=== PATIENT | female | born 1935 | race Caucasian/White ===

== ENCOUNTER → 2016-10-20 | Outpatient (CLI) | payer MEDICARE ==
[~2016-10-20] MED LIST: ASPI-482 PO; CYCL10TA2 PO; DOCU100T11 PO; HYDR-2758 PO; HYDR12.58 PO; LEVO175T5 PO; MULT-208 PO; PRED-220 PO; SALON PAS; VERA240C2 PO
[2016-10-20 13:47] LABS: BASO # 0.1 x10^3/uL (0.0-0.2); BASO % 1 % (0-3); EOS % 4 % (0-3); HEMATOCRIT 39.7 % (36.0-47.0); LYMPH # 1.2 x10^3/uL (1.0-4.8); LYMPH % 20 % (24-48); MEAN CORPUSCULAR HEMOGLOBIN 30 pg (25-35); MEAN CORPUSCULAR HGB CONC 33 g/dL (31-37); MEAN CORPUSCULAR VOLUME 92 fL (79-100); MONO % 10 % (0-9); NEUT % 65 % (31-73); PLATELET COUNT 199 x10^3/uL (140-400)
--- NOTE | 2016-10-20 13:47 | EKG ---
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 RI6.01 No previous ECG available for comparison Electronically Signed On 10-22-2016 11:34:03 CDT by Gm Knowles
[2016-10-20 13:52] LABS: ALBUMIN 3.5 g/dL (3.4-5.0); CALCIUM 9.7 mg/dL (8.5-10.1); CREATININE 0.9 mg/dL (0.6-1.0); GFR 59.8; POTASSIUM 4.2 mmol/L (3.5-5.1)
[2016-10-20 13:59] LABS: PROTHROMBIN TIME PATIENT 12.3 SEC (11.7-14.0)
--- NOTE | 2016-10-20 14:35 | RAD ---
Indication preop. Anticipated knee replacement. Frontal and lateral views of the chest were obtained. No prior imaging of the chest is available. The heart and pulmonary vessels appear normal. The lungs are clear. There is no pleural fluid or pneumothorax. Scoliosis is noted. IMPRESSION: No acute or focal process is seen in the chest
[2016-10-20 15:06] LABS: BILIRUBIN,URINE NEGATIVE (NEG); GLUCOSE,URINE NEGATIVE (NEG); NITRITE,URINE NEGATIVE (NEG); PH,URINE 5.5; PROTEIN,URINE NEGATIVE (NEG-TRACE); UROBILINOGEN,URINE 0.2 mg/dL (0.2 mg/dL)
[2016-10-20 15:22] LABS: RBC,URINE 0 /HPF (0-2); WBC,URINE OCC /HPF (0-4)
[2016-10-20 15:23] LABS: BACTERIA,URINE FEW /HPF (0-FEW); SQUAMOUS EPITHELIAL CELL,UR OCC /LPF
== END | disposition home or self-care (01) ==
LOC: SURGPAT 11:39
PROVIDERS: ATTEND Orthopaedic Surgery
DX: Z01.818 Encounter for other preprocedural examination (principal)
CPT/HCPCS: 36415; 71020; 80048; 81001; 82040; 83036; 85027; 85610; 85651; 85730; 87641; 93005

== ENCOUNTER 2016-11-04 07:10 | Inpatient (IN) | payer MEDICARE, OTHER ==
[~2016-11-04] VITALS: Ht 162.6 cm; Wt 88.0 kg
--- NOTE | 2016-11-24 13:50 | PDOC1 ---
History and Physical Date of Admission Date of Admission DATE: 11/25/16 Identification/Chief Complaint Chief Complaint left knee pain Problems: Source Source: Chart review History of Present Illness History of Present Illness The patient is an 81 year old female who presents today with left knee pain. She describes the pain as achy, and has pain daily. She is here to discuss the possibility of left total knee arthroplasty to improve her quality of life. [place] and was able to get in the water but unable to get up after she gets on the boat. She is taking Hydrocodone for the pain, and states it makes her sleepy. She is also using a Salonpas patch for the pain and would like a prescription today. She has a history of right total knee arthroplasty and her right knee is doing well. 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 Past Medical History Past Medical History uterine cancer - 2008 right nephrectomy - 1964 Past Surgical History Past Surgical History right nephrectomy 1964 Past Surgical History: Hernia Repair, Total knee replacement (right), Hysterectomy Family History Family History: Heart Disease, Stroke Social History Smoke: No ALCOHOL: rare Drugs: None Current Medications Current Medications Current Medications Morphine Sulfate 5 mg/Ketorolac Tromethamine 30 mg/Ropivacaine 60 ml/ Epinephrine HCl 0.5 mg/Sodium Chloride 100 ml @ 100 mls/hr 1X PERIOP ONCE INT ART ; Start 11/25/16 at 06:00; Stop 11/25/16 at 06:59 Active Scripts Active Reported Stool Softener (Docusate Sodium) 100 Mg Tablet 100 Mg PO DAILY Multi-Day Vitamins (Multivitamin) 1 Each Tablet 1 Tab PO DAILY [Salon Pas] Hydrocodone-Apap 5-325 (Hydrocodone Bit/Acetaminophen) 1 Each Tablet 1 Tab PO PRN Q6HRS PRN Aspir 81 (Aspirin) 81 Mg Tablet. 81 Mg PO Hydrochlorothiazide Tablet (Hydrochlorothiazide) 12.5 Mg Tablet 6.25 Mg PO DAILY Levothyroxine Sodium 175 Mcg Tablet 175 Mcg PO DAILYAC Verapamil Er (Verapamil Hcl) 240 Mg Cap24h.pel 240 Mg PO DAILY Allergies Allergies: Coded Allergies: No Known Drug Allergies (Unverified , 04/02/15) Physical Exam General: Alert, Oriented X3, Cooperative, No acute distress HEENT: Atraumatic, EOMI Lungs: Normal air movement Heart: RRR Abdomen: Soft Extremities: No clubbing, No cyanosis, Normal pulses, Other (The LEFT knee shows her mildly antalgic gait. There is varus alignment. No masses. No detectable effusion. Tenderness on the joint lines. Range of motion is 0-120 degrees. There is crepitus with range of motion, and pain at the extremes of motion. The knee is stable to varus and valgus stress without subluxation or laxity. Muscle strength is normal (5/5) for quadriceps and hamstrings, and muscle tone is normal. The skin is normal with no scars, rashes, lesions or ulcers. Light touch sensation is decreased at the left thigh. History of a nerve problem there 15 years ago and she uses by [employer] on the numb area. Wearing a Bj hose, +1 edema and positive varicosities. Dorsalis pedis pulse is intact and capillary refill is normal.) Skin: No rashes, No breakdown, No significant lesion Neuro: Normal speech, Sensation intact Psych/Mental Status: Mental status NL, Mood NL VTE Prophylaxis Ordered VTE Prophylaxis Devices: Yes VTE Pharmacological Prophylaxi: Yes Assessment/Plan Assessment/Plan We will tentatively schedule total knee arthroplasty in November 2016. She does not have any metal/medical sensitivity. We will plan a Journey II cobalt chrome implant, with patellar resurfacing. We discussed the potential risks of infection, neurovascular injury, bleeding, blood clots, need for revision surgery, or other potential surgical or anesthetic complications. CARLIE LOCK Nov 24, 2016 13:50
[2016-11-25] VITALS (7 sets, daily range): BP systolic 105–131; BP diastolic 54–63
[2016-11-25] MEDS ORDERED: ACETAMINOPHEN 500 MG TABLET PO PRN (06:00)
[2016-11-25] MEDS ORDERED: TRANEXAMIC ACID 1,000 MG in IV NS 50ML -- 1ST BAG INJ ONE (06:00)
[2016-11-25] MEDS ORDERED: CELECOXIB 200 MG CAPSULE. PO PRN (06:00)
[2016-11-25] MEDS ORDERED: MORPHINE SULFATE 5 MG, KETOROLAC TROMETHAMINE 30 MG, ROPIVacaine 0.5% PF 60 ML, EPINEPH... INT ART ONE ×5 (06:00)
[2016-11-25] MEDS ORDERED: PROCHLORPERAZINE 10 MG/2 ML VIAL. IV PRN ×2 (07:00→13:30)
[2016-11-25] MEDS ORDERED: MORPHINE SULFATE 2 MG/ML DISP.SYRIN. IV PRN (07:00)
[2016-11-25] MEDS ORDERED: ONDANSETRON PF 4 MG/2 ML VIAL. IV PRN (07:00)
[2016-11-25] MEDS ORDERED: IV RINGERS,LACTATED 1000ML 1,000 ML IV SCH (07:00)
[2016-11-25] MEDS ORDERED: LIDOCAINE 1% 1 ML SYRINGE. ID PRN (07:00)
[2016-11-25] MEDS ORDERED: fentaNYL PF VIAL 100 MCG/2 ML VIAL IV PRN ×4 (07:00→13:30)
[2016-11-25] MEDS ORDERED: HYDROmorphone 2 MG/ML VIAL IV PRN (07:00)
[2016-11-25] MEDS ORDERED: TRANEXAMIC ACID 1,000 MG in IV NS 50ML -- 2ND BAG INJ ONE (08:00)
[2016-11-25] MEDS ORDERED: VANCOMYCIN 1 GM VIAL. ONE (09:44)
[2016-11-25] MEDS ORDERED: TOBRAMYCIN POWDER 1.2 GM VIAL. ONE (09:45)
[2016-11-25] MEDS ORDERED: CELE200C PO (09:53)
[2016-11-25] MEDS ORDERED: MIDAZOLAM HCL/PF 2 MG/2 ML VIAL. ONE (10:09)
[2016-11-25] MEDS ORDERED: FAMOTIDINE 20 MG/2 ML VIAL ONE (10:09)
[2016-11-25] MEDS ORDERED: PROPOFOL 20 ML IV ONE (10:09)
[2016-11-25] MEDS ORDERED: ONDANSETRON PF 4 MG/2 ML VIAL. ONE (10:09)
[2016-11-25] MEDS ORDERED: LIDOCAINE 2% PF Vial for OR 5 ML VIAL. ONE (10:09)
[2016-11-25] MEDS ORDERED: fentaNYL PF VIAL 100 MCG/2 ML VIAL ONE ×2 (10:10→11:30)
[2016-11-25] MEDS ORDERED: ePHEDrine PF IN SALINE 50 MG/5 ML DISP.SYRIN IV ONE (11:06)
[2016-11-25] MEDS ORDERED: DEXAMETHASONE SOD PHOS 20 MG/5 ML VIAL. ONE (11:07)
[2016-11-25] MEDS ORDERED: LABETALOL 20 MG/4 ML DISP.SYRIN. ONE (11:42)
[2016-11-25] MEDS ORDERED: hydrALAZINE 20 MG/ML VIAL. ONE (11:54)
[2016-11-25] MEDS ORDERED: NEOSTIGMINE METHYLSULFATE 5 MG/5 ML SYRINGE. ONE (12:19)
[2016-11-25] MEDS ORDERED: GLYCOPYRROLATE 1 MG/5 ML VIAL. ONE (12:19)
[2016-11-25] MEDS ORDERED: DESFLURANE > 120 MINUTES IH ONE (12:49)
[2016-11-25] MEDS ORDERED: MORPHINE SULFATE 4 MG/ML DISP.SYRIN. IV PRN ×3 (13:30)
[2016-11-25] MEDS ORDERED: PROCHLORPERAZINE 5 MG TABLET. PO PRN (13:30)
[2016-11-25] MEDS ORDERED: ACETAMINOPHEN 325 MG TABLET. PO PRN (13:30)
[2016-11-25] MEDS ORDERED: ZOLPIDEM 5 MG TABLET. PO PRN (13:30)
[2016-11-25] MEDS ORDERED: oxyCODONE/APAP 7.5/325 1 TAB TABLET PO PRN (13:30)
[2016-11-25] MEDS ORDERED: 0.9 % SODIUM CHLORIDE 10 ML DISP.SYRIN. IV PRN (13:30)
[2016-11-25] MEDS ORDERED: diphenhydrAMINE 50 MG/ML VIAL IV PRN (13:30)
[2016-11-25] MEDS ORDERED: DEXTROSE 50% 25 GM / 50ML DISP.SYRIN. IV PRN (13:30)
[2016-11-25] MEDS ORDERED: CALCIUM CARBONATE 500 MG TAB.CHEW PO PRN (13:30)
[2016-11-25] MEDS ORDERED: traMADol 50 MG TABLET PO PRN ×2 (13:30)
[2016-11-25] MEDS ORDERED: METOCLOPRAMIDE HCL 10 MG/2 ML VIAL. IV PRN (13:30)
[2016-11-25] MEDS ORDERED: MORPHINE SULFATE 10 MG/ML VIAL. IV PRN (13:30)
--- NOTE | 2016-11-25 14:01 | RAD ---
Exam performed: 2 views of the left knee. Indication: Total knee arthroplasty Date of Service: 11/25/16. No previous exams are available for comparison Two views left knee findings: There are postsurgical changes of total left knee arthroplasty with prosthesis in satisfactory position. There is expected subcutaneous edema and emphysema. There is a drainage catheter projecting anterosuperiorly. Impression: 1. Postsurgical changes of total left knee arthroplasty.
--- NOTE | 2016-11-25 15:01 | PDOC4 ---
Operative Note Operative Note Date of Procedure: November 25, 2016 Pre-Op Diagnosis: Osteoarthritis left knee Post-Op Diagnosis: Osteoarthritis left knee Procedure: left total knee arthroplasty Surgeon: Stanford Franco MD Time Clerk: Jesenia Combs PA-C Anesthesia: General EBL: 150 mL Specimens Obtained: left knee bone and soft tissue Complications: none Implant Company: [employer] Drains: Hemovac plus pain catheter Tourniquet time: 63 Minutes Tourniquet Pressure: 350 mm Hg Indications for Procedure: Arthritis pain unrelieved by nonoperative management. Findings: Severe osteoarthritis with bone on bone contact in all three compartments Implants used: Size 3 left bicruciate stabilized Journey II BCS cobalt chrome femoral component, size 3 left Journey nonporous tibial baseplate, size 3 -4 18 mm left Journey II BCS XLPE articular insert, 29 mm biconvex (inset) patellar component Procedure in Detail: The patient was identified in the preoperative holding area, and the correct left lower extremity was marked by me. The patient was taken to the operating room where the patient was anesthetized by the Department of Anesthesia. Preoperative antibiotics were given intravenously. Tranexamic acid 1 g was given intravenously for intraoperative hemostasis. A "time-out" procedure was performed. The patient was positioned supine on the operative table with a tourniquet on the upper left thigh. The left lower limb was thoroughly prepped and draped in sterile fashion. An impervious stockinet and adhesive drape were used such that the skin was entirely covered. An Emmanuel leg hoskins was used. The operating team wore personal exhaust-ventilated hoods. The tourniquet was inflated to 350 Hg. A midline skin incision was made with a scalpel using the patella and tibial tubercle as landmarks. Electrocautery was used for hemostasis. My child care assistant used rake retractors. A medial parapatellar arthrotomy incision was used with extension into the distal quadriceps tendon. The patella was retracted laterally and Hohmann retractors were now used by my child care assistant. Excess synovium, the menisci, and the cruciate ligaments were resected sharply. The patella was assessed and excess synovium and osteophytes around the patellar articulation were removed. The patella was measured with a caliper, reamed with a reamer for an inset patella, and then the trial was used to confirm the preparatin. Periarticular injection was used in the suprapatellar pouch and distal quadriceps muscle. Whitesides's line was assessed on the femur. An intra-medullary 5 degree cutting guide was pinned to the femur, and a distal femoral cut was made with an oscillating saw. An additional 2 mm resection was used due to the deep femoral sulcus, and deficient condyle.My child care assistant held Hohmann retractors and an [place] retractor to protect the medial and lateral collateral ligaments, the patellar tendon, the skin and the other soft tissues. An anterior referencing guide was applied with external rotation of 3 to match Eli s line. A 5-in-1 Journey II cutting guide was then applied and pinned to the femur. The posterior, anterior, and all chamfer cuts were made with the oscillating saw. An extramedullary guide was pinned to the tibia and rotational alignment and the planned resection thickness assessed. An external alignment demetra was used to verify the planned cut in the varus-valgus plane and regarding posterior slope referencing the tibial tubercle, the tibial shaft, the ankle joint, and the second metatarsal. The upper tibia was cut made with an oscillating saw. My child care assistant held Hohmann retractors and a posterior cruciate ligament retractor to protect the medial and lateral collateral ligaments, the patellar tendon, the skin, the peroneal nerve and the other soft tissues. The upper tibia was sized with a trial baseplate. The posterior compartment was cleared of osteophytes and loose bodies, and posterior capsule released. Britni-articular injection was used in the posterior compartment. The box cut for a posterior stabilized component was made. A preliminary reduction was performed with a trial femur, trial tibial baseplate and trial polyethylene. Soft-tissue balancing was now performed, and extension and rotation of the alignments was checked using a guide demetra in the tibial trial and a guide pin in the femur. No additional releases were required. The stability was assessed using different thicknesses of tibial articular surface to find satisfactory stability and good range of motion. The rotation of the tibial component was marked on the upper tibia. Final trial reduction was now performed verifying patella tracking and tibiofemoral stability and alignment. The tibia preparation was completed with a drill, saw, and fin punch at the previously noted rotation. The final implants were verified and opened. Outer gloves were changed by the operating team. The bone cuts were washed thoroughly with the [employer] InterPulse device and dried. Two packages of Floyd + Nephew Rally HV bone cement were mixed in powdered form with 1 gm of Vancomycin and 1.2 g tobramycin, then vacuum-mixed with the monomer , and placed into a cement gun. The cut surfaces of the bone were thoroughly dried with Ferrera-tip suction and with laparotomy sponges for cement interdigitation. The final components were cemented into place. The knee was kept at full extension while the cement hardened, and excess cement was removed. Tranexamic acid 1 g was redosed intravenously for additional intraoperative hemostasis. A final periarticular injection was used for pain relief. The tourniquet was released, and electrocautery was used for hemostasis. A final check of [id number] and stability was made, and the polyethylene implant final size was chosen. The polyethylene implant was secured to the tibial baseplate, and the knee was reduced a final time. Thorough irrigation was used. Hemovac and pain catheter were used.The arthrotomy was closed with interrupted [id number] #1 PDS suture. The arthrotomy incision was then run with #1 STRATAFIX Symmetric PDS Plus Knotless suture. The subcutaneous tissues were closed with #2-0 Vicryl by my child care assistant. The skin was approximated with STRATAFIX Spiral MONOCRYL Plus Knotless suture by my child care assistant. The skin incision was then covered and reinforced with Dermabond Prineo mesh skin closure dressing. A bulky sterile gauze dressing was applied. Needle and sponge counts were correct. STANFORD FRANCO MD Nov 25, 2016 15:01
--- NOTE | 2016-11-25 15:02 | PDOC ---
BRIEF OPERATIVE NOTE Date: Nov 25, 2016 Pre-Op Diagnosis Date of Procedure: November 25, 2016 Pre-Op Diagnosis: Osteoarthritis left knee Post-Op Diagnosis: Osteoarthritis left knee Procedure: left total knee arthroplasty Surgeon: Stanford Franco MD Infant Room Teacher: Jesenia Combs PA-C Anesthesia: General EBL: 150 mL Specimens Obtained: left knee bone and soft tissue Complications: none Implant Company: [employer] Drains: Hemovac plus pain catheter Tourniquet time: 63 Minutes Tourniquet Pressure: 350 mm Hg Indications for Procedure: Arthritis pain unrelieved by nonoperative management. Findings: Severe osteoarthritis with bone on bone contact in all three compartments STANFORD FRANCO MD Nov 25, 2016 15:02
[2016-11-25] MEDS: CELECOXIB 200 MG CAPSULE. PO SCH (21:11)
[2016-11-25] MEDS: ASPIRIN ENTERIC COATED 325 MG TABLET.DR. PO SCH (21:12)
[2016-11-25] MEDS: IV DEXTROSE 5 %-0.45 % NACL 1,000 ML IV SCH (22:55)
[2016-11-26] MEDS: IV DEXTROSE 5 %-0.45 % NACL 1,000 ML IV SCH (01:30)
--- NOTE | 2016-11-26 01:43 | ACF ---
Admission Forms Criteria PAIN MANAGEMENT GR Clinical Indications for Admission to Inpatient Care (Place 'X' for any and all applicable criteria): Hospital admission is needed for appropriate care of the patient because of 1 or more of the following are present (1)(2)(3)(4)(5): [ ]I. Severe pain requiring acute inpatient management as indicated by 1 or more of the following (2)(5)(10): [ ]a) Continuous or frequent (eg, every 2 to 4 hours) parenteral analgesics required [A] [ ]b) Necessity (ie, alternative approaches not effective) for analgesic regimen that can only be performed or initiated in inpatient setting [X]II. Pain causing debilitation to the point of inability to function or be supported at any other level of care [ ]III. Severe side effects from pain medications as indicated by ANY ONE of the following (12)(13)(14)(15): [ ]a) Uncontrollable seizures [ ]b) Cardiac arrhythmias of immediate concern [ ]c) Dehydration that is severe or persistent [ ]d) Vomiting that is severe or persistent [ ]e) Altered mental status that is severe or persistent [ ]f) Obstipation with inadequate GI function to maintain nutrition The original [employer] content created by [employer] has been revised. The portions of the content which have been revised are identified through the use of italic text or in bold, and [facility] has neither reviewed nor approved the modified material. All other unmodified content is copyright [employer]. Please see references footnoted in the original [employer] edition 2016 Admission Criteria Met?: Yes GANESH GARCIA Nov 26, 2016 01:43
[2016-11-26 02:27] VITALS: BP 132/66
[2016-11-26] MEDS ORDERED: MAGNESIUM HYDROXIDE 2,400 MG/30 ML ORAL.SUSP. PO PRN (06:00)
[2016-11-26 06:14] LABS: HEMATOCRIT 31.2 % (36.0-47.0); HEMOGLOBIN 10.4 g/dL (12.0-15.5)
[2016-11-26 06:30] VITALS: BP 124/65
[2016-11-26] MEDS: LEVOTHYROXINE 175 MCG TABLET PO SCH (07:26)
[2016-11-26] MEDS: ASPIRIN ENTERIC COATED 325 MG TABLET.DR. PO SCH ×2 (09:17→20:41)
[2016-11-26] MEDS: MULTIVITAMIN with MINERAL TABLET. PO SCH (09:17)
[2016-11-26] MEDS: FERROUS SULFATE 325 MG TABLET. PO SCH ×2 (09:17→16:41)
[2016-11-26] MEDS: CELECOXIB 200 MG CAPSULE. PO SCH ×2 (09:17→20:41)
[2016-11-26] MEDS: SENNOSIDES/DOCUSATE 8.6/50MG TABLET. PO SCH (09:17)
[2016-11-26] MEDS: HYDROcodone/APAP 7.5/325MG 1 TAB TABLET PO PRN ×2 (09:18→13:12)
[2016-11-26] MEDS: VERAPAMIL SR 120 MG TABLET.ER. PO SCH (09:19)
[2016-11-26] MEDS: hydroCHLOROthiazide 25 MG TABLET PO SCH (09:19)
--- NOTE | 2016-11-26 10:03 | PDOC ---
PROGRESS NOTES Subjective Subjective No complaints. Pain is controlled. Objective Vital Signs Vital Signs Date Time Temp Pulse Resp B/P (MAP) Pulse Ox O2 Delivery O2 Flow Rate FiO2 11/26/16 09:19 76 124/65 11/26/16 09:18 18 Room Air 11/26/16 06:30 97.8 93 97.8 11/25/16 18:15 2.0 Physical Exam Postop dressing intact with spotty bloody drainage laterally. Hemovac and pain catheter in place. Good dorsiflexion and plantarflexion of the foot with no evidence of neurovascular injury. Calves are soft and nontender with negative Homans sign. Peripheral pulses and light touch sensation intact. Labs Laboratory Tests Test 11/25/16 10:08 11/25/16 14:11 11/25/16 16:58 11/25/16 21:02 Glucose (Fingerstick) 94 mg/dL (70-99) 186 mg/dL (70-99) 149 mg/dL (70-99) 164 mg/dL (70-99) Test 11/26/16 05:40 11/26/16 06:39 Hemoglobin 10.4 g/dL (12.0-15.5) Hematocrit 31.2 % (36.0-47.0) Mean Corpuscular Hemoglobin Concent 34 g/dL (31-37) Glucose (Fingerstick) 134 mg/dL (70-99) Laboratory Tests Test 11/25/16 10:08 11/25/16 14:11 11/25/16 16:58 11/25/16 21:02 Glucose (Fingerstick) 94 mg/dL (70-99) 186 mg/dL (70-99) 149 mg/dL (70-99) 164 mg/dL (70-99) Test 11/26/16 05:40 11/26/16 06:39 Hemoglobin 10.4 g/dL (12.0-15.5) Hematocrit 31.2 % (36.0-47.0) Mean Corpuscular Hemoglobin Concent 34 g/dL (31-37) Glucose (Fingerstick) 134 mg/dL (70-99) Imaging Postoperative x-rays reviewed by me, showing satisfactory total knee replacement , with no apparent complications. Assessment Assessment POD #1 TKA Problems: Plan Plan of Care Continue POC including DVT prophylaxis and physical therapy. CARLIE LOCK Nov 26, 2016 10:03
[2016-11-26] MEDS ORDERED: BISACODYL 10 MG SUPP.RECT. PR PRN (16:00)
[2016-11-26] MEDS: HYDROcodone/APAP 10/325 1 TAB TABLET PO PRN ×2 (16:41→20:42)
[2016-11-26 18:01] VITALS: BP 145/67
[2016-11-26] MEDS: oxyCODONE/APAP 5/325 1 TAB TABLET PO PRN (22:40)
[2016-11-27 04:41] LABS: HEMATOCRIT 31.2 % (36.0-47.0); HEMOGLOBIN 10.4 g/dL (12.0-15.5)
[2016-11-27] MEDS: oxyCODONE/APAP 5/325 1 TAB TABLET PO PRN ×2 (05:18→08:16)
[2016-11-27 06:26] VITALS: BP 159/79
[2016-11-27] MEDS: LEVOTHYROXINE 175 MCG TABLET PO SCH (07:20)
[2016-11-27] MEDS: FERROUS SULFATE 325 MG TABLET. PO SCH ×2 (08:11→16:46)
[2016-11-27] MEDS: ASPIRIN ENTERIC COATED 325 MG TABLET.DR. PO SCH ×2 (08:11→20:55)
[2016-11-27] MEDS: MULTIVITAMIN with MINERAL TABLET. PO SCH (08:11)
[2016-11-27] MEDS: CELECOXIB 200 MG CAPSULE. PO SCH ×2 (08:11→20:55)
[2016-11-27] MEDS: SENNOSIDES/DOCUSATE 8.6/50MG TABLET. PO SCH (08:11)
[2016-11-27] MEDS: hydroCHLOROthiazide 25 MG TABLET PO SCH (08:15)
[2016-11-27] MEDS: VERAPAMIL SR 120 MG TABLET.ER. PO SCH (08:18)
--- NOTE | 2016-11-27 12:47 | PDOC ---
PROGRESS NOTES Subjective Subjective Pain controlled. Some nausea. Objective Vital Signs Vital Signs Date Time Temp Pulse Resp B/P (MAP) Pulse Ox O2 Delivery O2 Flow Rate FiO2 11/27/16 08:18 83 157/65 11/27/16 08:16 Room Air 11/27/16 06:26 98.1 20 95 98.1 11/25/16 18:15 2.0 Physical Exam Postop dressing and pain catheter have been removed. Spotty bloody drainage only. Calf soft and nontender. Good AROM of ankle. Minimal erythema/warmth. Labs Laboratory Tests Test 11/25/16 14:11 11/25/16 16:58 11/25/16 21:02 11/26/16 05:40 Glucose (Fingerstick) 186 mg/dL (70-99) 149 mg/dL (70-99) 164 mg/dL (70-99) Hemoglobin 10.4 g/dL (12.0-15.5) Hematocrit 31.2 % (36.0-47.0) Mean Corpuscular Hemoglobin Concent 34 g/dL (31-37) Test 11/26/16 06:39 11/26/16 11:38 11/26/16 16:59 11/26/16 21:27 Glucose (Fingerstick) 134 mg/dL (70-99) 92 mg/dL (70-99) 96 mg/dL (70-99) 112 mg/dL (70-99) Test 11/27/16 03:45 11/27/16 07:09 11/27/16 10:57 Hemoglobin 10.4 g/dL (12.0-15.5) Hematocrit 31.2 % (36.0-47.0) Mean Corpuscular Hemoglobin Concent 33 g/dL (31-37) Glucose (Fingerstick) 122 mg/dL (70-99) 103 mg/dL (70-99) Laboratory Tests Test 11/26/16 16:59 11/26/16 21:27 11/27/16 03:45 11/27/16 07:09 Glucose (Fingerstick) 96 mg/dL (70-99) 112 mg/dL (70-99) 122 mg/dL (70-99) Hemoglobin 10.4 g/dL (12.0-15.5) Hematocrit 31.2 % (36.0-47.0) Mean Corpuscular Hemoglobin Concent 33 g/dL (31-37) Test 11/27/16 10:57 Glucose (Fingerstick) 103 mg/dL (70-99) Imaging Postoperative x-rays and report reviewed by me and show satisfactory alignment and no apparent complications. Assessment Assessment POD #2 TKA Problems: Plan Plan of Care Continue POC. Discharge planning for tomorrow. Aspirin 325 mg po BID and mobilization for DVT prophylaxis. STANFORD BLACK MD Nov 27, 2016 12:47
--- NOTE | 2016-11-27 16:42 | PATHOLOGY ---
PATHOLOGY REPORT * * * * * * * * FINAL DIAGNOSIS: Segments of bone and soft tissue, left total knee arthroplasty: - Advanced degenerative arthritis. - Mild papillary chronic synovitis. (JPM:mgtom; 11/27/2016) REPORT ELECTRONICALLY SIGNED BY: Miguel A Tillman M.D. DATE/TIME: 11/27/2016 16:42 * * * * * * * * GROSS PATHOLOGY: Received in formalin labeled "Bryan Dial, left knee tissue," are multiple segments of bone, including tibial plateau, measuring 14.8 x 12.4 x 2.3 cm in aggregate dimensions admixed with soft tissue; meniscus is present. The specimen shows focal eburnation of the articular surfaces. Or Scrub Tech sections of bone and soft tissue are submitted in cassette A1, following decalcification. (DAC; 11/26/2016) INITIAL CPT CODE(S): A; 75816, 15840 Professional services performed [place] [facility] [place] [address] Technical services performed by [facility] at [address] [place] [address]. SPECIMEN(S) RECEIVED: A.Left knee tissue CLINICAL HISTORY: Left knee OA PATIENT: BRYAN ZHU /AGE: 4 1935 (Age: 81) PATIENT #: [id number] ALT CASE #: SPECIMEN COLLECTION DATE: 11/25/2016 SPECIMEN RECEIVED DATE: 11/25/2016 [facility] - [address] [place] [address] - PHONE: [phone] * * * END OF REPORT * * *
[2016-11-27 19:00] VITALS: BP 128/60
[2016-11-28] MEDS: oxyCODONE/APAP 5/325 1 TAB TABLET PO PRN (04:39)
[2016-11-28 05:00] LABS: HEMATOCRIT 32.8 % (36.0-47.0); HEMOGLOBIN 10.9 g/dL (12.0-15.5)
[2016-11-28 06:00] VITALS: BP 142/70
[2016-11-28] MEDS: LEVOTHYROXINE 175 MCG TABLET PO SCH (06:33)
[2016-11-28] MEDS: FERROUS SULFATE 325 MG TABLET. PO SCH (08:00)
[2016-11-28] MEDS: SENNOSIDES/DOCUSATE 8.6/50MG TABLET. PO SCH (08:53)
[2016-11-28] MEDS: VERAPAMIL SR 120 MG TABLET.ER. PO SCH (08:53)
[2016-11-28] MEDS: hydroCHLOROthiazide 25 MG TABLET PO SCH (08:53)
[2016-11-28] MEDS: ASPIRIN ENTERIC COATED 325 MG TABLET.DR. PO SCH (08:54)
[2016-11-28] MEDS: MULTIVITAMIN with MINERAL TABLET. PO SCH (08:55)
[2016-11-28] MEDS: CELECOXIB 200 MG CAPSULE. PO SCH (08:55)
[2016-11-28 14:30] VITALS: BP 150/72
[2016-11-28] MEDS ORDERED: OXYC-323 PO (14:35)
[2016-11-28] MEDS ORDERED: ONDA4TAB10 SL (14:59)
== END 2016-11-28 15:05 | disposition home or self-care (01) | DRG 470 ==
LOC: OPSVCIP 11-25 09:22 → 4 SOUTHEST 11-25 15:08
PROVIDERS: ADMIT Orthopaedic Surgery; ATTEND Orthopaedic Surgery
PROC: 0SRD0J9 Replacement of Left Knee Joint with Synthetic Substitute, Cemented, Open Approach (ICD-10-PCS; principal; 2016-11-25 12:30)
DX: M17.12 Unilateral primary osteoarthritis, left knee (principal); Z85.42 Personal history of malignant neoplasm of other parts of uterus; Z96.651 Presence of right artificial knee joint; Z82.3 Family history of stroke; Z90.710 Acquired absence of both cervix and uterus
CPT/HCPCS: 36415; 73560; 82962; 85014; 85018; 86850; 86900; 86901; 88305; 88311; J0171; J0360; J0690; J1100; J1885; J2250; J2270; J2405; J2704; J2710; J2795; J3010; J3260; J3370; J3490; J7030; J7120; Q0164; S0028; 97116; 97150; 97530; C1769; J2001

== ENCOUNTER → 2016-11-14 | Outpatient (CLI) | payer MEDICARE, OTHER ==
--- NOTE | 2016-11-14 09:42 | CARD ---
APPROVED REPORT EXAM: Two-dimensional and M-mode echocardiogram with Doppler and color Doppler. Other Information Quality : GoodHR: 63bpm Rhythm : NSR INDICATION Murmur RISK FACTORS Hypertension Obesity Family History 2D DIMENSIONS RVDd3.3 (2.9-3.5cm)Left Atrium(2D)3.4 (1.6-4.0cm) IVSd0.8 (0.7-1.1cm)Aortic Root(2D)3.1 (2.0-3.7cm) LVDd4.6 (3.9-5.9cm)LVOT Diameter2.4 (1.8-2.4cm) PWd0.8 (0.7-1.1cm)LVDs3.2 (2.5-4.0cm) FS (%) 30.5 %SV57.4 ml LVEF(%)58.0 (>50%) Aortic Valve AoV Peak Sukh.208.1cm/sAoV VTI49.1cm AO Peak GR.17.3mmHgLVOT Peak Sukh.114.6cm/s AO Mean GR.10mmHgAVA (VMAX)2.56cm2 AI P 1/2 Xbrl169iw Mitral Valve MV E Ucxsorde51.7cm/sMV DECEL MGQR272el MV A Uzxvkefc219.7cm/sE/A Ratio0.7 MV A Ficwqggy29pe Pulmonary Valve PV Peak Qlzwukfq39.4cm/s Tricuspid Valve TR P. Miifgwta977oh/sTR Peak Gr.19mmHg Pulmonary Vein S1 Pqodolex84.9cm/sD2 Gqsuifcl60.3cm/s PVa mgvlulde52mjma LEFT VENTRICLE The left ventricle is normal size. There is normal left ventricular wall thickness. The left ventricu lar systolic function is normal and the ejection fraction is within normal range. The Ejection Fracti on is 60-65%. There is normal LV segmental wall motion. Transmitral Doppler flow pattern is Grade I-a bnormal relaxation pattern. RIGHT VENTRICLE The right ventricle is normal size. There is normal right ventricular wall thickness. The right ventr icular systolic function is normal. ATRIA The left atrium size is normal. The right atrium size is normal. The interatrial septum is intact wit h no evidence for an atrial septal defect or patent foramen ovale as noted on 2-D or Doppler imaging. AORTIC VALVE The aortic valve is mildly sclerotic. The aortic valve is trileaflet. Doppler and Color Flow revealed mild aortic regurgitation. There is no significant aortic valvular stenosis. MITRAL VALVE Mitral annular calcification is mild. The mitral valve leaflets are mildly thickened. There is no catrina dence of mitral valve prolapse. There is no mitral valve stenosis. Doppler and Color Flow revealed tr billy mitral regurgitation. TRICUSPID VALVE Doppler and Color Flow revealed trace tricuspid regurgitation. The pulmonary artery systolic pressure is estimated at 22 mmHg. There is no pulmonary hypertension. PULMONIC VALVE The pulmonic valve is not well visualized but appears to open adequately. Doppler and Color Flow reve aled trace pulmonic valvular regurgitation. There is no pulmonic valvular stenosis by spectral Dopple r. GREAT VESSELS The aortic root is normal in size. The ascending aorta is normal in size. The IVC is normal in size a nd collapses >50% with inspiration. PERICARDIAL EFFUSION There is no evidence of significant pericardial effusion. Critical Notification Critical Value: No <Conclusion> The left ventricular systolic function is normal and the ejection fraction is within normal range. Th e Ejection Fraction is 60-65%. There is normal LV segmental wall motion. Doppler and Color Flow revealed mild aortic regurgitation.
== END | disposition home or self-care (01) ==
LOC: ECHO 07:47
PROVIDERS: ATTEND Internal Medicine Cardiovascular Disease
DX: I35.1 Nonrheumatic aortic (valve) insufficiency (principal); R01.1 Cardiac murmur, unspecified
CPT/HCPCS: 93306

== ENCOUNTER → 2017-08-20 | Outpatient (CLI) | payer MEDICARE ==
[~2017-08-20] MED LIST changes: -ASPI-482 PO; -CYCL10TA2 PO; -DOCU100T11 PO; -HYDR-2758 PO; -HYDR12.58 PO; +IOHEXOL 180 MG/ML 10 ML VIAL.; -LEVO175T5 PO; -MULT-208 PO; -PRED-220 PO; -SALON PAS; -VERA240C2 PO; +methylPREDNISolone ACETATE 40 MG/ML VIAL.; +methylPREDNISolone ACETATE 80 MG/ML VIAL.
== END ==
LOC: PNCL 08:19
DX: M51.16 Intervertebral disc disorders with radiculopathy, lumbar region (principal); M48.061 Spinal stenosis, lumbar region without neurogenic claudication; I10 Essential (primary) hypertension; M19.90 Unspecified osteoarthritis, unspecified site; M54.5 Low back pain; M81.0 Age-related osteoporosis without current pathological fracture; Z98.890 Other specified postprocedural states; Z90.710 Acquired absence of both cervix and uterus; Z90.5 Acquired absence of kidney; Z79.82 Long term (current) use of aspirin; Z96.653 Presence of artificial knee joint, bilateral; Z85.42 Personal history of malignant neoplasm of other parts of uterus
CPT/HCPCS: 62323; J1030; J1040; Q9965

== ENCOUNTER → 2017-09-09 | Outpatient (CLI) | payer MEDICARE ==
[~2017-09-09] MED LIST changes: +LIDOCAINE 1% PF 2 ML VIAL.
== END | disposition home or self-care (01) ==
LOC: PNCL 08:49
DX: M51.16 Intervertebral disc disorders with radiculopathy, lumbar region (principal); M48.061 Spinal stenosis, lumbar region without neurogenic claudication; E11.42 Type 2 diabetes mellitus with diabetic polyneuropathy; I10 Essential (primary) hypertension; Z90.710 Acquired absence of both cervix and uterus; Z85.42 Personal history of malignant neoplasm of other parts of uterus; Z90.721 Acquired absence of ovaries, unilateral; Z90.79 Acquired absence of other genital organ(s); M19.90 Unspecified osteoarthritis, unspecified site; Z90.5 Acquired absence of kidney; E03.9 Hypothyroidism, unspecified; Z83.3 Family history of diabetes mellitus; Z82.49 Family history of ischemic heart disease and other diseases of the circulatory system
CPT/HCPCS: 62323; J1030; J1040; Q9965

== ENCOUNTER → 2017-10-14 | Outpatient (CLI) | payer MEDICARE | LOC: PNCL 08:55 | DX: M51.16 Intervertebral disc disorders with radiculopathy, lumbar region (principal); M48.061 Spinal stenosis, lumbar region without neurogenic claudication; G62.9 Polyneuropathy, unspecified; E11.9 Type 2 diabetes mellitus without complications; I10 Essential (primary) hypertension; E03.9 Hypothyroidism, unspecified; M19.90 Unspecified osteoarthritis, unspecified site; Z98.890 Other specified postprocedural states; Z90.710 Acquired absence of both cervix and uterus; Z90.721 Acquired absence of ovaries, unilateral; Z90.5 Acquired absence of kidney | CPT/HCPCS: 62323; J1030; J1040; Q9965 ==

== ENCOUNTER → 2017-11-30 | Outpatient (CLI) | payer MEDICARE ==
[2017-04-19 11:48] VITALS: BP 131/63
[~2017-11-30] MED LIST changes: +ASCO10002 PO; +ASPI-482 PO; +ASPI81TA50 PO; +CALC-31 PO; +CELE200C PO; +CHOL20002 PO; +CYCL10TA2 PO; +DOCU100T11 PO; +HYDR-2758 PO; +HYDR-2762 PO; +HYDR12.53 PO; +HYDR12.58 PO; -IOHEXOL 180 MG/ML 10 ML VIAL.; +LACT1CAP19 PO; +LEVO175T5 PO; +LEVO500T59 PO; -LIDOCAINE 1% PF 2 ML VIAL.; +LOPE2CAP PO; +MULT-208 PO; +ONDA4TAB10 SL; +ONDA4TAB12 PO; +OXYC-323 PO; +PRED-220 PO; +SALON PAS; +VERA240C2 PO; -methylPREDNISolone ACETATE 40 MG/ML VIAL.; -methylPREDNISolone ACETATE 80 MG/ML VIAL.
--- NOTE | 2017-11-30 10:22 | KCIC ---
MRI Lumbar Spine without contrast History: Lumbar stenosis, left leg pain, low back pain Technique: Multiplanar, multi sequential noncontrast MR imaging was performed of the lumbar spine. Contrast: None Comparison: April 02, 2015 Findings: Lumbar vertebral body stature is unchanged, old superior height loss of L3. There is again grade 1 anterior spondylolisthesis at L4-5 and to lesser degree at L3-4 and L2-3. There is again more advanced degenerative disc disease at L5-S1, to a lesser degree L2-3 through L4-5. There is mild L3-4 and L4-5 endplate edema likely reactive/degenerative in etiology. Conus terminates at L1. There is small hemangioma of the T11 vertebral body. There is again suspected severe left hydronephrosis. L1-L2: Neural foramina and spinal canal are adequate. L2-L3: There is again mild to moderate buckling of the ligamentum flavum and facet hypertrophic change. There is again minimal disc osteophyte complex and bulge. Spinal canal is adequate. Left neural foramen is adequate, mild narrowing greater distally of the right neural foramen. L3-L4: There is again shallow bulge/protrusion, small posterior annular tear. There is mild facet hypertrophic change and buckling of the ligamentum flavum. Spinal canal is overall adequate. Neural foramina are adequate. L4-L5: There is again moderate facet hypertrophic change and moderate to severe buckling of the ligamentum flavum, fluid in the facet articulations bilaterally. There is minimal bulge superimposed on mild partial uncovering of the posterior aspect of the disc due to spondylolisthesis. There is again mild left lateral recess stenosis. Right neural foramen is adequate. There is again moderate to severe narrowing of left neural foramen in part by bulge, contact exiting left L4 nerve root. L5-S1: There is again posterior protrusion without significant impingement descending S1 nerve roots. Spinal canal is adequate. There is moderate to severe narrowing of the left neural foramen greater distally by disc osteophyte complex which contacts the exiting left L5 nerve root, overall mild narrowing on the right. Impression: 1. There is no new significant lumbar spinal stenosis, mild left lateral recess stenosis at L4-5. 2. There is neural foramina compromise as stated, more significant narrowing on the left at L4-5 and L5-S1 with contact exiting left L4 and L5 nerve roots respectively. 3. There is similar grade 1 anterior spondylolisthesis at L4-5 and to lesser degree at L3-4 and L2-3. There is again more advanced degenerative disc disease L5-S1, to lesser degree at more superior levels. 4. There is again severe left hydronephrosis. Electronically signed by: Rahul Estrella MD (11/30/2017 10:19 AM) [email or web address]
== END | disposition home or self-care (01) ==
LOC: KCIC MRI 09:01
PROVIDERS: ATTEND Orthopaedic Surgery
DX: M48.061 Spinal stenosis, lumbar region without neurogenic claudication (principal); M48.07 Spinal stenosis, lumbosacral region; M51.37 Other intervertebral disc degeneration, lumbosacral region; N13.39 Other hydronephrosis; M43.16 Spondylolisthesis, lumbar region; M25.78 Osteophyte, vertebrae; M51.27 Other intervertebral disc displacement, lumbosacral region; I10 Essential (primary) hypertension; E03.9 Hypothyroidism, unspecified; E87.6 Hypokalemia; E11.9 Type 2 diabetes mellitus without complications; Z82.3 Family history of stroke; Z83.3 Family history of diabetes mellitus; Z96.653 Presence of artificial knee joint, bilateral; Z90.722 Acquired absence of ovaries, bilateral; Z90.79 Acquired absence of other genital organ(s); Z90.5 Acquired absence of kidney; Z90.710 Acquired absence of both cervix and uterus
CPT/HCPCS: 72148

== ENCOUNTER → 2017-12-15 | Outpatient (CLI) | payer MEDICARE ==
[2017-04-19 11:48] VITALS: BP 131/63
[~2017-12-15] MED LIST changes: -CHOL20002 PO; +[UNRECOGNIZED DRUG - CODE] PO
--- NOTE | 2017-12-15 17:21 | KCIC ---
Lumbar spine radiograph December 15, 2017 INDICATION: Spondylolisthesis with chronic low back pain. COMPARISON: MRI lumbar spine November 30, 2017. TECHNIQUE: 3 views of the lumbosacral spine including flexion and extension views are provided. FINDINGS: There is grade 1 anterolisthesis of L4 on L5 with suggestion of mild shift in alignment upon flexion. There is mild disc height loss at all levels of the lumbar spine and moderate disc height loss at L5-S1. Mild anterior marginal osteophytosis is noted. There is moderate to advanced facet arthropathy in the lower lumbar spine. There is diffuse osteopenia. Surgical clips are noted within the pelvis. No acute fracture is identified. IMPRESSION: There is grade 1 anterolisthesis of L4 on L5 with suggestion of worsening of alignment upon flexion. Electronically signed by: Geetha Cee MD (12/15/2017 5:17 PM) [facility]-KCIC1
== END | disposition home or self-care (01) ==
LOC: KCIC 12:23
PROVIDERS: ATTEND Neurological Surgery
DX: M43.16 Spondylolisthesis, lumbar region (principal); M81.0 Age-related osteoporosis without current pathological fracture; M17.0 Bilateral primary osteoarthritis of knee; I10 Essential (primary) hypertension; E11.42 Type 2 diabetes mellitus with diabetic polyneuropathy; Z79.82 Long term (current) use of aspirin; Z82.49 Family history of ischemic heart disease and other diseases of the circulatory system; Z82.3 Family history of stroke; Z83.3 Family history of diabetes mellitus; Z90.722 Acquired absence of ovaries, bilateral; Z90.5 Acquired absence of kidney; Z90.710 Acquired absence of both cervix and uterus
CPT/HCPCS: 72100

== ENCOUNTER → 2017-12-18 | Outpatient (CLI) | payer MEDICARE ==
[2017-04-19 11:48] VITALS: BP 131/63
--- NOTE | 2017-12-18 14:07 | KCIC ---
Complete abdominal ultrasound History: Left lower abdominal pain. Findings: Technically difficult study due to overlying bowel gas and large body habitus. Aorta: Poorly visualized, but no evidence of aneurysm. Inferior vena cava: Poorly visualized but appears patent Pancreas: Poorly visualized. Liver: 18.4 cm cephalocaudal. Echogenic appearance compatible with fatty infiltration. Gallbladder: No evidence of cholelithiasis, gallbladder wall thickening or pericholecystic fluid. Bile ducts: No evidence of dilatation Right kidney: Surgically removed 15 years ago. Left kidney: 18.3 cm length. Multiple large anechoic lesions are identified, in aggregate measure 13.3 cm longitudinal. In correlation with CT scan of April 15, 2017, these are most likely parapelvic cysts. Not possible to exclude hydronephrosis. Spleen: Not enlarged Impression: 1. Hepatic steatosis. 2. Multiple anechoic lesions within and around the left kidney. In correlation with prior CT study of April 15, 2017, likely parapelvic cysts although hydronephrosis is not excludable. Further evaluation could be obtained with CT of the kidneys, if indicated. Electronically signed by: Wilber Gutierrez MD (12/18/2017 2:03 PM) [facility]-KCIC2
== END | disposition home or self-care (01) ==
LOC: KCIC US 07:34
PROVIDERS: ATTEND Family Medicine
DX: K76.0 Fatty (change of) liver, not elsewhere classified (principal); I10 Essential (primary) hypertension; E11.9 Type 2 diabetes mellitus without complications; M17.12 Unilateral primary osteoarthritis, left knee; E03.9 Hypothyroidism, unspecified; E87.6 Hypokalemia; Z96.653 Presence of artificial knee joint, bilateral; Z90.722 Acquired absence of ovaries, bilateral; Z90.79 Acquired absence of other genital organ(s); Z90.710 Acquired absence of both cervix and uterus; Z82.49 Family history of ischemic heart disease and other diseases of the circulatory system; Z82.3 Family history of stroke; Z83.3 Family history of diabetes mellitus
CPT/HCPCS: 76700

== ENCOUNTER → 2018-03-04 | Outpatient (CLI) | payer MEDICARE ==
[2017-04-19 11:48] VITALS: BP 131/63
[~2018-03-04] MED LIST changes: +CHOL20002 PO; +DOCU-109 PO; +GUAI600T47 PO; -HYDR-2758 PO; +HYDR-2761 PO; -HYDR-2762 PO; +HYDR-2765 PO; +HYDR-3164 PO; -HYDR12.53 PO; +HYDR12.575 PO; +LACT1CAP6 PO; -OXYC-323 PO; +OXYC1TAB15 PO; -[UNRECOGNIZED DRUG - CODE] PO
--- NOTE | 2018-03-04 10:43 | EKG ---
[facility] [address] [place] [address] Test Date: 2018-03-04 Test Time: 10:50:59 Pat Name: BRYAN ZHU Department: Room: Gender: F Director Of Construction: TV : 1935 Requested By: TRAE TAFOYA Order Number: [id number] Reading MD: Sandor Villagran MD Measurements Intervals Williamson Rate: 57 P: -133 MI: 152 QRS: 22 QRSD: 80 T: 22 QT: 424 QTc: 416 Interpretive Statements SINUS RHYTHM Electronically Signed On 03-08-2018 8:16:38 HEALTHCARE TRANSLATOR by Sandor Villagran MD
[2018-03-04 11:11] LABS: BASO # 0.1 x10^3/uL (0.0-0.2); BASO % 1 % (0-3); EOS # 0.3 x10^3/uL (0.0-0.7); EOS % 5 % (0-3); HEMATOCRIT 36.9 % (36.0-47.0); HEMOGLOBIN 12.5 g/dL (12.0-15.5); LYMPH % 16 % (24-48); MEAN CORPUSCULAR HEMOGLOBIN 31 pg (25-35); MEAN CORPUSCULAR HGB CONC 34 g/dL (31-37); MEAN CORPUSCULAR VOLUME 91 fL (79-100); MONO # 0.6 x10^3/uL (0.0-1.1); MONO % 10 % (0-9); NEUT # 4.3 x10^3uL (1.8-7.7); NEUT % 68 % (31-73); PLATELET COUNT 183 x10^3/uL (140-400); RED BLOOD COUNT 4.08 x10^6/uL (3.50-5.40); RED CELL DISTRIBUTION WIDTH 13.8 % (11.5-14.5); WHITE BLOOD COUNT 6.3 x10^3/uL (4.0-11.0)
[2018-03-04 11:14] LABS: ALBUMIN 3.3 g/dL (3.4-5.0); ALBUMIN/GLOBULIN RATIO 0.9 (1.0-1.7); CALCIUM 9.9 mg/dL (8.5-10.1); CREATININE 1.1 mg/dL (0.6-1.0); GFR 47.3; TOTAL BILIRUBIN 0.2 mg/dL (0.2-1.0); TOTAL PROTEIN 7.1 g/dL (6.4-8.2)
== END | disposition home or self-care (01) ==
LOC: SURGPAT 10:01
PROVIDERS: ATTEND Neurological Surgery
DX: Z01.818 Encounter for other preprocedural examination (principal); M54.12 Radiculopathy, cervical region; M48.062 Spinal stenosis, lumbar region with neurogenic claudication
CPT/HCPCS: 36415; 80053; 85025; 87641; 93005

== ENCOUNTER → 2018-03-10 | Day surgery (SDC) | payer MEDICARE ==
[~2018-03-10] VITALS: Ht 157.5 cm; Wt 89.8 kg
[~2018-03-10] MED LIST changes: +0.9 % SODIUM CHLORIDE 20 ML VIAL. IJ ONE; +BACITRACIN 50,000 UNIT in IV NORMAL SALINE 1000ML BAG 1,000 ML IRR ONE; +BUPIVAC MPF-EPI 0.5%-1:200000 30 ML VIAL. ONE; +DESFLURANE > 120 MINUTES IH ONE; +DEXAMETHASONE SOD PHOS 20 MG/5 ML VIAL. ONE; +GELATIN SPONGE SIZE 100. ONE; +GLYCOPYRROLATE 1 MG/5 ML VIAL. ONE; +HYDROcodone/APAP 5/325MG 1 TAB TABLET ONE; +HYDROcodone/APAP 5/325MG 1 TAB TABLET PO ONE; +HYDROmorphone 2 MG/ML VIAL IV PRN; +IV RINGERS,LACTATED 1000ML 1,000 ML IV SCH; +KETOROLAC 60 MG/2 ML INJ FOR OR. ONE; +LIDOCAINE 1% PF 2 ML VIAL. ID PRN; +LIDOCAINE 2% PF Vial for OR 5 ML VIAL. ONE; +MINERAL OIL/PETROLATUM,WHITE OPHTH OINT 3.5GM TUBE. ONE; +MORPHINE SULFATE 2 MG/ML VIAL. IV PRN; +NEOSTIGMINE METHYLSULFATE 5 MG/5 ML SYRINGE. ONE; +ONDANSETRON PF 4 MG/2 ML VIAL. IV PRN; +ONDANSETRON PF 4 MG/2 ML VIAL. ONE; +PHENYLEPHRINE 10 MG/ML VIAL. ONE; +PROCHLORPERAZINE 10 MG/2 ML VIAL. IV PRN; +PROPOFOL 100 ML IV ONE; +PROPOFOL 20 ML IV ONE; +PROPOFOL 50 ML IV ONE; +REMIFENTANIL 2 MG VIAL. IV ONE; +ROCURONIUM 50 MG/5 ML VIAL. ONE; +THROMBIN TOPICAL 20,000 UNIT SPRAY.SYRN KIT TP ONE; +ePHEDrine PF IN SALINE 50 MG/5 ML DISP.SYRIN IV ONE; +fentaNYL PF VIAL 100 MCG/2 ML VIAL IV PRN
--- NOTE | 2018-03-10 14:26 | DISCH ---
DISCHARGE INSTRUCTIONS Condition on Discharge Condition on Discharge: Stable Activity After Discharge Activity Instructions for Disc: Activity as tolerated, Avoid exertion, Progressive ambulation Bathing Instructions: Shower-keep dressing dry, No Tub Bath until see Lifting Instructions after Dis: No heavy lifting, No pulling or pushing, Do not lift >10 pounds Exercise Instruction after Dis: Exercise per therapy Driving Instructions after Dis: Do not drive Weight Bearing Status after Di: Full weight bearing Diet after Discharge Diet after Discharge: Diabetic No Calorie Level Additional Diet Restrictions: resume home diet Wound Incision Care Wound/Incision Care: Ice to area for comfort Other wound/incision instructi: may remove dressing in 48 hrs if dry then may shower, no soaking Contacting the DRCheryl after DC Call your doctor for: Concerns you may have Follow-Up Follow up with: Dr. Tafoya's nurse in 2 weeks [phone] Treatment/Equipment after DC Adaptive Equipment Issued: None TRAE TAFOYA MD Mar 10, 2018 14:26
--- NOTE | 2018-03-10 14:53 | OP ---
DATE OF SURGERY: 03/10/2018 PREOPERATIVE DIAGNOSIS: Lateral recess stenosis with fixed spondylolisthesis grade 1, L4-L5, left with left lumbar radiculopathy. POSTOPERATIVE DIAGNOSIS: Lateral recess stenosis with fixed spondylolisthesis grade 1, L4-L5, left with left lumbar radiculopathy. OPERATION PERFORMED: Hemilaminotomy with decompression of dura and nerve root, L4-L5, left. The operation was done with EMG monitoring, fluoroscopy, microscopic dissection. SURGEON: Idris Tafoya M.D. DAMPER WORKER: JANENE Hartman, assisted with the surgery. She assisted with the exposure, the microdecompression as well as the closure. OPERATIVE INDICATIONS: The patient is a pleasant 82-year-old woman who developed severe intractable back and left leg pain, which failed conservative measures. On imaging studies, she had a grade 1 anterolisthesis without motion on flexion and extension views as well as significant lateral recess stenosis at this level. There was also evidence of foraminal narrowing on the left. I explained to her that I was willing to perform lumbar microsurgery to decompress the dura and nerve root, but that there was always a possibility that her spondylolisthesis may worsen and instrumentation may need to be considered at some point in the future, which was problematic based on her age. She understood. She strongly wished to go ahead with surgery. She understood the operation, the risks and the expected postoperative care. DESCRIPTION OF PROCEDURE: Following general endotracheal anesthesia, the patient was positioned prone on the Isiah table. Lumbar region prepped and draped in a standard fashion. RAISA hose and AV impulse boots were applied for DVT prophylaxis. A microscope was draped. Fluoroscopy was draped and brought into field. Monitoring was established. Ancef 2 g was given less than 1 hour prior to the initiation of surgery. Using fluoroscopic guidance, a midline incision was made over the L4-L5 interspace. I dissected down through the skin and subcutaneous tissue, reflected the paraspinal muscles and placed a [place] micro disc retractor. I brought in the microscope and using the high speed air drill, I burred down a generous hemilaminotomy. This was using the microscope with microscopic technique. I trimmed the thickened ligamentum flavum from medial to lateral and then performed a generous partial foraminotomy. The nerve was markedly compressed and indented just at and below the level of the disc and I completely relieved this. I removed ligamentum flavum from medial to lateral. At this point, then I felt that I had an excellent decompression, I irrigated copiously with antibiotic solution. During the operation, I had maintained excellent hemostasis and the following irrigation, I removed the retractor, obtained hemostasis in the muscle and I closed the wound in layers with absorbable sutures. The skin was closed with 4-0 subcuticular stitch. The operation went very well and the patient was taken to the recovery room in excellent condition. I was quite pleased with the surgery. IDRIS TAFOYA MD DR: CALDERON/sumit JOB#: [id number] / [id number] OSMAN
[2018-03-10 16:50] VITALS: BP 142/68
--- NOTE | 2018-03-11 07:47 | PREOP HP ---
DATE OF SERVICE: 03/10/2018. HISTORY OF PRESENT ILLNESS: The patient is a pleasant 82-year-old who is having difficulty with low back pain, which radiates into her left buttock, left hip and left anterior thigh. There is also pain in the left anterior leg. The problem has been present for about 2 years. She rates her pain as an 8/10 with walking and movement. Standing and walking and sitting for long periods increases her pain. She has sciatica pillow that helps. She takes [place]. She has epidural steroid injections this last summer, which she said helped her for a few weeks. PAST MEDICAL HISTORY: Anemia, arthritis, cancer, headaches and migraines, hypertension, kidney problems, kidney stones, osteoporosis, radiation treatments, swelling of the limbs, thyroid disease. PAST SURGICAL HISTORY: Right nephrectomy 1965, hiatal hernia 1999, hernia 2010, hysterectomy, uterine cancer in 2008, right knee replacement in 2012, left knee replacement in 2017. FAMILY HISTORY: Heart problems, kidney disease, hypertension. SOCIAL HISTORY: Employed in [employer]. . Denies exercise. Denies tobacco use. Drinks alcohol 1-2 times per year. Drinks coffee 5 cups daily. ALLERGIES: No known drug allergies. CURRENT MEDICATIONS: Prednisone, Synthroid, verapamil, hydrochlorothiazide, aspirin 81, vitamin D, calcium, vitamin C, and [place]. REVIEW OF SYSTEMS: A 12-point review of systems was obtained and is noncontributory except for that mentioned above. PHYSICAL EXAMINATION: GENERAL APPEARANCE: Alert, pleasant, no acute distress. HEAD: Normocephalic and atraumatic. SKIN: Warm, dry. MUSCULOSKELETAL: Lumbar paraspinal muscle bulk is normal, restricted range of motion of lumbar spine, [id number] tenderness of lower lumbar spine with palpation, normal range of motion of the lower extremities bilaterally. EXTREMITIES: No clubbing, cyanosis or edema. NEUROLOGIC: Alert and oriented x 3, normal recent and remote memory, strength 5/5 in bilateral lower extremities. Sensory is intact to light touch in bilateral lower extremities except for decrease in sensation in the distal left anterior thigh and anterior leg. Reflexes were present and symmetric in the lower extremities bilaterally, negative straight leg raising bilaterally, normal gait. IMAGING: I reviewed a lumbar MRI scan. On that study, there is a grade 1 anterolisthesis at L4-L5. There is severe left foraminal stenosis at L4-L5. ASSESSMENT/PLAN: I believe the problems at L4-L5 with severe left foraminal narrowing is responsible for her left hip and left anterior thigh pain. After obtaining and reviewing lumbar flexion and extension x-rays and finding that there is minimal movement, I would like to proceed with a left foraminal decompression at L4-L5. Both the patient and her daughter have been educated on the risks as well as the recovery of this procedure. Ultimately, they would like to proceed. We will make the arrangements. TRAE TAFOYA MD DR: CALDERON/sumit JOB#: [id number] / [id number] OSMAN
== END | disposition home or self-care (01) ==
LOC: SURG 10:19
PROVIDERS: ATTEND Neurological Surgery
DX: M48.061 Spinal stenosis, lumbar region without neurogenic claudication (principal); M54.16 Radiculopathy, lumbar region; M43.16 Spondylolisthesis, lumbar region; D64.9 Anemia, unspecified; M19.90 Unspecified osteoarthritis, unspecified site; G43.909 Migraine, unspecified, not intractable, without status migrainosus; I10 Essential (primary) hypertension; N20.0 Calculus of kidney; M81.0 Age-related osteoporosis without current pathological fracture; E07.9 Disorder of thyroid, unspecified; Z98.890 Other specified postprocedural states; Z90.710 Acquired absence of both cervix and uterus; Z96.653 Presence of artificial knee joint, bilateral; Z82.49 Family history of ischemic heart disease and other diseases of the circulatory system; Z84.89 Family history of other specified conditions; Z79.82 Long term (current) use of aspirin; Z79.899 Other long term (current) drug therapy
CPT/HCPCS: 63047; 76000; 97162; 97530; A7015; G8978; G8979; G8980; J0690; J1100; J1885; J2001; J2405; J2704; J2710; J3490; J7030

== ENCOUNTER → 2018-05-05 | Outpatient (CLI) | payer MEDICARE ==
[2018-03-10 16:50] VITALS: BP 142/68
[~2018-05-05] MED LIST changes: -0.9 % SODIUM CHLORIDE 20 ML VIAL. IJ ONE; -BACITRACIN 50,000 UNIT in IV NORMAL SALINE 1000ML BAG 1,000 ML IRR ONE; -BUPIVAC MPF-EPI 0.5%-1:200000 30 ML VIAL. ONE; -DESFLURANE > 120 MINUTES IH ONE; -DEXAMETHASONE SOD PHOS 20 MG/5 ML VIAL. ONE; -GELATIN SPONGE SIZE 100. ONE; -GLYCOPYRROLATE 1 MG/5 ML VIAL. ONE; -HYDROcodone/APAP 5/325MG 1 TAB TABLET ONE; -HYDROcodone/APAP 5/325MG 1 TAB TABLET PO ONE; -HYDROmorphone 2 MG/ML VIAL IV PRN; -IV RINGERS,LACTATED 1000ML 1,000 ML IV SCH; -KETOROLAC 60 MG/2 ML INJ FOR OR. ONE; -LIDOCAINE 1% PF 2 ML VIAL. ID PRN; -LIDOCAINE 2% PF Vial for OR 5 ML VIAL. ONE; -MINERAL OIL/PETROLATUM,WHITE OPHTH OINT 3.5GM TUBE. ONE; -MORPHINE SULFATE 2 MG/ML VIAL. IV PRN; -NEOSTIGMINE METHYLSULFATE 5 MG/5 ML SYRINGE. ONE; -ONDANSETRON PF 4 MG/2 ML VIAL. IV PRN; -ONDANSETRON PF 4 MG/2 ML VIAL. ONE; -PHENYLEPHRINE 10 MG/ML VIAL. ONE; -PROCHLORPERAZINE 10 MG/2 ML VIAL. IV PRN; -PROPOFOL 100 ML IV ONE; -PROPOFOL 20 ML IV ONE; -PROPOFOL 50 ML IV ONE; -REMIFENTANIL 2 MG VIAL. IV ONE; -ROCURONIUM 50 MG/5 ML VIAL. ONE; -THROMBIN TOPICAL 20,000 UNIT SPRAY.SYRN KIT TP ONE; -ePHEDrine PF IN SALINE 50 MG/5 ML DISP.SYRIN IV ONE; -fentaNYL PF VIAL 100 MCG/2 ML VIAL IV PRN
--- NOTE | 2018-05-05 12:16 | RAD ---
3 view lumbar spine 05/05/2018 CLINICAL INDICATION: Spondylolisthesis of the lumbar spine and back pain. COMPARISON: Lumbar spine 12/15/2017 FINDINGS: Neutral flexion and extension lateral views were obtained of the lumbar spine. There is mild lumbar spinal curvature with degree of curvature not assessed on lateral views. There is minimal grade 1 anterolisthesis L4 on L5 which has not significantly changed on the flexion or extension views. Moderate multilevel lumbar spondylosis with disc space narrowing, endplate sclerosis and marginal osteophyte formation from L2-L3 through L5-S1. There is minimal lumbar spondylosis at L1-L2. There are multiple surgical clips anterior to the lumbar spine level. IMPRESSION: 1. Stable grade 1 anterolisthesis L4 on L5 without exacerbation on extension or flexion views. 2. Multilevel lumbar spondylosis, as detailed above. Electronically signed by: Diego Vail MD (05/05/2018 12:11 PM) [facility]
== END | disposition home or self-care (01) ==
LOC: RAD 10:56
PROVIDERS: ATTEND Neurological Surgery
DX: M47.816 Spondylosis without myelopathy or radiculopathy, lumbar region (principal); M48.061 Spinal stenosis, lumbar region without neurogenic claudication; M25.78 Osteophyte, vertebrae
CPT/HCPCS: 72100

== ENCOUNTER → 2018-06-24 | Outpatient (CLI) | payer MEDICARE ==
[2018-03-10 16:50] VITALS: BP 142/68
--- NOTE | 2018-06-24 14:04 | RAD ---
PROCEDURE: CHEST PA LATERAL CLINICAL INDICATION: SHORTNESS OF BREATH COMPARISON: None FINDINGS: No pneumothorax identified. Cardiac and mediastinal contours unremarkable. No pulmonary consolidation or acute airspace disease. No acute osseous abnormalities identified. IMPRESSION: No pulmonary consolidation or acute airspace disease. Electronically signed by: Wilner Freeman DO (06/24/2018 1:59 PM) [facility] [place]
== END | disposition home or self-care (01) ==
LOC: RAD 11:38
PROVIDERS: ATTEND Internal Medicine Cardiovascular Disease
DX: R06.02 Shortness of breath (principal)
CPT/HCPCS: 71046

== ENCOUNTER → 2019-10-27 | Outpatient (CLI) | payer MEDICARE ==
[2018-03-10 16:50] VITALS: BP 142/68
[~2019-10-27] MED LIST changes: +ASCO100019 PO; -ASCO10002 PO
--- NOTE | 2019-10-27 12:25 | RAD ---
EXAM: Left lower extremity venous Doppler. HISTORY: Left lower extremity pain/swelling. COMPARISON: None. FINDINGS: Grayscale and Doppler analysis of the left lower extremity deep venous system was performed with graded compression and augmentation. The common femoral, greater saphenous, superficial femoral, popliteal and calf veins were assessed. There is no evidence of deep venous thrombosis. A popliteal cyst on the left measures 5.1 x 2.4 x 1.5 cm. IMPRESSION: 1. No evidence of deep venous thrombosis. 2. Small to moderate left popliteal cyst. Electronically signed by: Vicky Loyola MD (10/27/2019 12:22 PM) [id number]
== END | disposition home or self-care (01) ==
LOC: US 11:36
PROVIDERS: ATTEND Family Medicine
DX: M71.22 Synovial cyst of popliteal space [Baker], left knee (principal); M79.89 Other specified soft tissue disorders; R22.42 Localized swelling, mass and lump, left lower limb; M79.662 Pain in left lower leg
CPT/HCPCS: 93971

== ENCOUNTER → 2020-12-26 | Outpatient (CLI) | payer MEDICARE ==
[2018-03-10 16:50] VITALS: BP 142/68
[~2020-12-26] MED LIST changes: +IOHEXOL 240 MG/ML 50ML VIAL. PO ONE; +IOHEXOL 300 MG/ML 100ML VIAL. IV ONE
--- NOTE | 2020-12-26 16:27 | KCIC ---
EXAMINATION: CT abdomen and pelvis with IV contrast. INDICATION:85 years, Female, renal cyst, evaluate for abdominopelvic masses. TECHNIQUE: Axial CT images of the abdomen and pelvis were obtained. Coronal and sagittal reformatted performed. COMPARISON: 04/12/2015 and 04/15/2017. Exposure: One or more of the following individualized dose reduction techniques were utilized for thi s examination: 1. Automated exposure control 2. Adjustment of the mA and/or kV according to patient size 3. Use of iterative reconstruction technique. FINDINGS: LOWER CHEST: Unremarkable ABDOMEN/PELVIS: No suspicious focal hepatic lesion. Subcentimeter hypodensity in the right hepatic lobe, too small to characterize, unchanged since prior exam. Unremarkable gallbladder, biliary ducts and spleen. Mildly atrophic pancreatic parenchyma with fat infiltration. No adrenal nodule. Similar diffuse left renal cortical thinning with unchanged multiple cystic changes in the left kidne y measuring approximately 12.7 x 7.7 cm. These cystic changes are probably communicating with each ot her. Left ureter is not dilated. No left nephrolithiasis. There is an ill-defined 1.3 cm hypodense le cornelia in the anterior cortex of the interpolar left kidney (series 5 image 23 and series 2 image 40), slightly increasing in size since prior exam which measures 1.1 cm. Additional, small subcentimeter h ypodensity in the left renal cortex, too small to characterize. Nonspecific bilateral perinephric fat stranding. Right nephrectomy. Colonic diverticulosis without diverticulitis. Normal appendix. No bowel dilatation. Small hiatal her izabela, unchanged. Moderate aortoiliac atherosclerotic calcifications without significant narrowing or d ilatation. Mesenteric arteries and portal vein are patent. High-grade stenosis at the celiac trunk or igin, secondary to atherosclerotic calcifications. No pneumoperitoneum or ascites. Postsurgical changes in bilateral pelvis. Interval resolution of the previously seen left pelvic cyst ic mass. Interval decreasing in size of right pelvic cystic structure, now measures 4.4 x 2.5 cm, pre viously 5.6 x 3.8 cm. No lymphadenopathy in the abdomen or pelvis by size criteria. Unremarkable urin lenora bladder. MUSCULOSKELETAL: Postsurgical changes along the anterior abdominal wall with hernia repair. Multilevel degenerative ch anges in the lumbar spine, worst at L4-5 and L5-S1. No acute osseous process or suspicious lesion. Di ffuse osteopenia. IMPRESSION: 1. Interval resolution of the previously seen left pelvic cystic mass. Interval decreasing in size o f right pelvic cystic structure. Findings favor to represent postsurgical seroma. 2. Unchanged diffuse left renal cortical thinning with multiple cystic changes in the left kidney, l ikely communicating with each other. Differential includes severe hydronephrosis secondary to [facility] bill nosis versus simple parapelvic cysts. Recommend further evaluation with CT urography. 3. Indeterminate 1.3 cm hypodense lesion in the anterior cortex of the interpolar left kidney, sligh tly increasing in size since prior exam which measures 1.1 cm. This can be further evaluated by the r ecommended CT. 4. Other chronic/incidental findings, as described above. Electronically signed by: Rosa Holder MD (12/26/2020 4:24 PM) [facility]
--- NOTE | 2020-12-26 17:29 | KCIC ---
Exam: Grayscale and color Doppler ultrasound of the left popliteal fossa Indication: Reason: LT GODINEZ'S CYST / Spl. Instructions: / History: . Comparison: Left lower extremity venous Doppler ultrasound from 10/27/2019 Findings/ impression: Targeted ultrasound of the left popliteal fossa demonstrates normal vascularity. Previously identified popliteal cyst is not appreciated on today's exam. Visualized soft tissues are unremarkable. Electronically signed by: Larry Sauceda DO (12/26/2020 5:26 PM) [id number]
== END ==
LOC: KCIC CT 14:03
PROVIDERS: ATTEND Family Medicine
DX: R19.00 Intra-abdominal and pelvic swelling, mass and lump, unspecified site (principal); K57.30 Diverticulosis of large intestine without perforation or abscess without bleeding; K44.9 Diaphragmatic hernia without obstruction or gangrene; N28.1 Cyst of kidney, acquired; N13.30 Unspecified hydronephrosis; K86.89 Other specified diseases of pancreas; I70.0 Atherosclerosis of aorta; I70.8 Atherosclerosis of other arteries; M71.22 Synovial cyst of popliteal space [Baker], left knee
CPT/HCPCS: 74177; 76881; 82565; Q9966; Q9967

== ENCOUNTER → 2021-01-14 | Outpatient (CLI) | payer MEDICARE ==
[2018-03-10 16:50] VITALS: BP 142/68
[~2021-01-14] MED LIST changes: -IOHEXOL 240 MG/ML 50ML VIAL. PO ONE; -IOHEXOL 300 MG/ML 100ML VIAL. IV ONE
--- NOTE | 2021-01-14 12:12 | KCIC ---
EXAM: DUAL ENERGY X-RAY ABSORPTIOMETRY (DEXA). HISTORY: Postmenopausal screening. Osteoporosis. FINDINGS: The lowest measured T-score is -2.0 in the left total femur, based on a bone mineral densit y of 0.701 g/cm^2. Refer to the worksheets for full detail. No comparison examinations are available. IMPRESSION: Low bone mass. Bone mineral density yields a T-score between -1.0 and -2.5. Fracture risk is increase d. FRAX was not calculated. METHODOLOGY: Dual energy x-ray absorptiometry was performed to measure bone mineral density. The foll owing analysis is based on the 2019 Official Positions of the International Society for Clinical Dens itometry: Measurements of the hips and the average of L1-L4 are preferred. When the spine and/or hip cannot be feasibly measured or interpreted, or in the setting of hyperparathyroidism, distal radial bone minera l density may be measured. The lumbar spine T-score is based on the average bone mineral density of L1-L4. In the setting of art ifact or anatomic abnormality, some lumbar levels may be excluded, and the remaining levels used for calculation. A single lumbar level is not used for diagnosis, and if only a single level is available for assessment, another anatomic site will be used to assign a diagnosis. The hip T-score is based on the bone mineral density measurement of the femoral neck or total proxima l femur of either side, whichever is lowest. Bilateral mean values are not used for diagnosis. The forearm T-score is derived from 33% of the distal radius of the nondominant forearm. For postmenopausal and perimenopausal women, and men age 50 or older, of all ethnic groups, T-scores are calculated through comparison of the current measurement with the NHANES III database standard fo r females aged 20-29 years. The lowest T-score of the evaluated anatomic sites is used to a ssign a diagnosis based on the World Health Organization densitometric classification. In premenopausal females and males younger than age 50, a Z-score is calculated based on population s pecific reference data for patient sex and self-reported ethnicity. Electronically signed by: Vicky Loyola MD (01/14/2021 12:09 PM) [id number]
== END ==
LOC: KCIC DEXA 10:09
PROVIDERS: ATTEND Orthopaedic Surgery
DX: M81.0 Age-related osteoporosis without current pathological fracture (principal)
CPT/HCPCS: 77080

== ENCOUNTER → 2021-01-14 | Outpatient (CLI) | payer MEDICARE ==
[2018-03-10 16:50] VITALS: BP 142/68
--- NOTE | 2021-01-14 14:16 | RAD ---
EXAM: Triple phase bone scintigraphy. HISTORY: Left knee pain. COMPARISON: 01/09/2021. FINDINGS: 25 mCi Tc-99m MDP was administered intravenously. Scintigraphic images of both knees were o btained in angiographic, immediate and delayed phases. Angiographic images demonstrate hyperemia about the left knee. Immediate images demonstrate a similar pattern of hyperemia along the medial greater than lateral aspect of the femoral component. Delayed images demonstrate a similar pattern. There is also mildly asymmetrically greater uptake about the le ft tibial component than the right. Images of the right knee demonstrate expected changes status post total knee arthroplasty. IMPRESSION: 1. Increased uptake about the femoral component of the left total knee arthroplasty on all 3 phases i s consistent with loosening or infection. Electronically signed by: iVcky Loyola MD (01/14/2021 2:13 PM) [id number]
== END ==
LOC: NM 08:46
PROVIDERS: ATTEND Orthopaedic Surgery
DX: M25.562 Pain in left knee (principal); R68.89 Other general symptoms and signs; Z96.651 Presence of right artificial knee joint
CPT/HCPCS: 78315; A9503

== ENCOUNTER → 2021-01-16 | Outpatient (CLI) | payer MEDICARE ==
[2018-03-10 16:50] VITALS: BP 142/68
[2021-01-16 10:28] LABS: BASO # 0.1 x10^3/uL (0.0-0.2); BASO % 2 % (0-3); EOS # 0.2 x10^3/uL (0.0-0.7); EOS % 5 % (0-3); HEMATOCRIT 35.3 % (36.0-47.0); HEMOGLOBIN 11.7 g/dL (12.0-15.5); LYMPH # 0.9 x10^3/uL (1.0-4.8); LYMPH % 17 % (24-48); MEAN CORPUSCULAR HEMOGLOBIN 30 pg (25-35); MEAN CORPUSCULAR HGB CONC 33 g/dL (31-37); MEAN CORPUSCULAR VOLUME 91 fL (79-100); MONO # 0.5 x10^3/uL (0.0-1.1); MONO % 9 % (0-9); NEUT # 3.6 x10^3/uL (1.8-7.7); NEUT % 68 % (31-73); PLATELET COUNT 195 x10^3/uL (140-400); RED BLOOD COUNT 3.88 x10^6/uL (3.50-5.40); RED CELL DISTRIBUTION WIDTH 13.5 % (11.5-14.5); WHITE BLOOD COUNT 5.3 x10^3/uL (4.0-11.0)
== END ==
LOC: LAB 09:41
PROVIDERS: ATTEND Orthopaedic Surgery
DX: M17.12 Unilateral primary osteoarthritis, left knee (principal)
CPT/HCPCS: 36415; 85025; 85651; 86141

== ENCOUNTER → 2021-02-26 | Outpatient (CLI) | payer MEDICARE ==
[2018-03-10 16:50] VITALS: BP 142/68
[~2021-02-26] MED LIST changes: +CYCL10TA19 PO; -CYCL10TA2 PO
--- NOTE | 2021-02-26 15:11 | CARD ---
MR#: [id number] Date of Study: 02/26/2021 Ordering Physician: ATILIO BUTLER, Referring Physician: ATILIO BUTLER, Tech: Merced Oseguera [facility] APPROVED REPORT EXAM: Two-dimensional and M-mode echocardiogram with Doppler and color Doppler. Other Information Quality : AverageHR: 94bpm INDICATION RISK FACTORS Hypertension Obesity 2D DIMENSIONS RVDd3.6 (2.9-3.5cm)Left Atrium(2D)3.6 (1.6-4.0cm) IVSd1.1 (0.7-1.1cm)Aortic Root(2D)3.2 (2.0-3.7cm) LVDd3.9 (3.9-5.9cm)LVOT Diameter2.2 (1.8-2.4cm) PWd1.2 (0.7-1.1cm)LVDs2.3 (2.5-4.0cm) FS (%) 40.5 %SV47.9 ml LVEF(%)71.9 (>50%) Aortic Valve AoV Peak Sukh.226.2cm/sAoV VTI55.2cm AO Peak GR.20.5mmHgLVOT Peak Sukh.102.4cm/s AO Mean GR.9mmHgAVA (VMAX)1.73cm2 AI P 1/2 Todv453xi Mitral Valve MV E Adbkdgdy94.6cm/sMV DECEL VPJO649ak MV A Nvptqunz04.9cm/sE/A Ratio0.7 Pulmonary Valve PV Peak Tzzrvayb370.6cm/s Tricuspid Valve TR P. Egtaeyvl003vl/sTR Peak Gr.26mmHg LEFT VENTRICLE The left ventricle is normal size. There is borderline to mild concentric left ventricular hypertroph y. The left ventricular systolic function is normal. Estimated ejection fraction 60%. There is gabi l LV segmental wall motion. Transmitral Doppler flow pattern is Grade I-abnormal relaxation pattern. RIGHT VENTRICLE The right ventricle is normal size. There is normal right ventricular wall thickness. The right ventr icular systolic function is normal. ATRIA The left atrium size is normal. The right atrium size is normal. The interatrial septum is intact wit h no evidence for an atrial septal defect or patent foramen ovale as noted on 2-D or Doppler imaging. AORTIC VALVE The aortic valve is normal in structure and function. Doppler and Color Flow revealed mild aortic reg urgitation. There is no significant aortic valvular stenosis. MITRAL VALVE The mitral valve is normal in structure and function. There is no evidence of mitral valve prolapse. There is no mitral valve stenosis. Doppler and Color-flow revealed mild mitral regurgitation. TRICUSPID VALVE The tricuspid valve is normal in structure and function. Doppler and Color Flow revealed mild tricusp id regurgitation. Estimated PAP 30 mmHg. There is no tricuspid valve stenosis. PULMONIC VALVE The pulmonary valve is normal in structure and function. Doppler and Color Flow revealed mild pulmoni c valvular regurgitation. GREAT VESSELS The aortic root is normal in size. The ascending aorta is normal in size. The IVC is normal in size a nd collapses >50% with inspiration. PERICARDIAL EFFUSION There is no evidence of significant pericardial effusion. Critical Notification Critical Value: No <Conclusion> The left ventricular systolic function is normal. Estimated ejection fraction 60%. There is normal LV segmental wall motion. Transmitral Doppler flow pattern is Grade I-abnormal relaxation pattern. Mild aortic regurgitation. Mild mitral regurgitation. Mild tricuspid regurgitation. Estimated PAP 30 mmHg. There is no evidence of significant pericardial effusion. Signed by : Quintin Smith, Electronically Approved : 02/26/2021 15:10:45
== END ==
LOC: ECHO 13:25
PROVIDERS: ATTEND Internal Medicine Cardiovascular Disease
DX: I08.8 Other rheumatic multiple valve diseases (principal); R01.1 Cardiac murmur, unspecified; R06.00 Dyspnea, unspecified
CPT/HCPCS: 93306